=== PATIENT | female | born 1935 | race Caucasian/White ===

== ENCOUNTER 2017-07-18 16:51 | Inpatient (IN) | payer OTHER, MEDICARE ==
[~2017-07-18] VITALS: Ht 165.1 cm; Wt 68.3 kg
--- NOTE | ~2017-07-18 | 2DMMODE ---
[facility] [address] [place] [address] 2 D/M-MODE ECHOCARDIOGRAM Name: ROSARIOWESTLEY Room #: 202-P ADM IN M.R.#: [id number] Admission: 07/18/17 Attend Phys: Hank Urrutia MD Discharge: Date of : 33 Date of Service: 07/21/17 [facility] Report #: [id number] THIS REPORT FOR: //name// APPROVED REPORT Study performed: 07/21/2017 13:38:25 EXAM: Comprehensive 2D, Doppler, and color-flow Echocardiogram Patient Location: Bedside Room #: 202 BSA: 1.74 Other Information Study Quality: Fair Indications COPD Pulmonary Hypertension Dyspnea 2D Dimensions RVDd: 34.28 mm LVEF(%): 58.86 (>50%) IVSd: 11.05 (7-11mm) LVOT Diam: 21.83 (18-24mm) LVDd: 43.50 mm PWd: 11.42 (7-11mm) Ascending Ao: 35.95 (22-36mm) LVDs: 30.04 (25-40mm) Aortic Root: 34.80 mm IVC: 22.00 mm Abad's LVEF: 58.86 % Volumes Left Atrial Volume (Systole) Single Plane 4CH: 54.53 mL Single Plane 2CH: 59.83 mL LA ESV Index: 36.00 mL/m2 Aortic Valve AoV Peak Dieter.: 1.57 m/s AO Peak Gr.: 9.86 mmHg LVOT Max P.02 mmHg LVOT Max V: 1.00 m/s BRYSON Vmax: 2.39 cm2 Mitral Valve E/A Ratio: 1.1 MV Decel. Time: 140.32 ms [facility] [address] [place] [address] 2 D/M-MODE ECHOCARDIOGRAM Name: WESTLEY PONCE Room #: 202-P [facility] IN .R.#: [id number] Admission: 07/18/17 Attend Phys: Hank Urrutia MD Discharge: Date of : 34 Date of Service: 07/21/17 1600 Report #: [id number] E Max Dieter.: 1.23 m/s MV A Dieter.: 1.15 m/s MV PHT: 40.69 ms IVRT: 69.20 ms Pulmonary Valve PV Peak Dieter.: 1.03 m/s PV Peak Gr.: 4.25 mmHg DE End Vmax: 1.56 m/s Pulmonary Vein P Vein S: 0.43 m/s P Vein A: 0.25 m/s P Vein D: 0.31 m/s P Vein A Dur.: 101.5 msec P Vein S/D Ratio: 1.39 Tricuspid Valve TR Peak Dieter.: 3.52 m/s TR Peak Gr.: 49.42 mmHg PA Pressure: 59.00 mmHg Left Ventricle The left ventricle is normal size. Regional wall motion is not well visualized but grossly normal. There is normal left ventricular wall thickness. The left ventricular systolic function is normal. The left ventricular ejection fraction is within the normal range. LVEF 65%. Grade II - pseudonormal filling dynamics. Right Ventricle The right ventricle is normal size. The right ventricular systolic function is normal. Atria Left atrium is dilated. Right atrium is dilated. Aortic Valve Aortic valve is calcified, trileaflet Trace aortic regurgitation. There is no aortic valvular stenosis. Mitral Valve The mitral valve is normal in structure. Mild mitral regurgitation. No evidence of mitral valve stenosis. Tricuspid Valve The tricuspid valve is normal in structure. There is mild tricuspid regurgitation. Estimated PAP 60 mmHg. There is moderate pulmonary hypertension. [facility] [address] [place] [address] 2 D/M-MODE ECHOCARDIOGRAM Name: WESTLEY PONCE Room #: 202-P [facility] IN ..#: [id number] Admission: 07/18/17 Attend Phys: Hank Urrutia MD Discharge: Date of : 34 Date of Service: 07/21/17 1600 Report #: [id number] Pulmonic Valve The pulmonary valve is normal in structure. Mild pulmonic regurgitation. Great Vessels The aortic root is normal in size. IVC is dilated and collapses >50% with inspiration. Pericardium There is no pericardial effusion. <Conclusion> Technically limited study The left ventricular systolic function is normal. LVEF 65%. Grade II - pseudonormal filling dynamics. Aortic valve is calcified, trileaflet. No aortic valvular stenosis or insufficiency. The mitral valve is normal in structure. Mild mitral regurgitation. Pulmonary artery pressure of 60mmHg There is no pericardial effusion. <ELECTRONICALLY SIGNED> By: Saman Magallon MD, FACC 07/21/171599 99 99 Saman Magallon MD, FACC /INF
--- NOTE | ~2017-07-18 | HC ---
[facility] [place] [address] CONSULTATION Name: WESTLEY PONCE Room #: 202-P ADM IN M.R.#: [id number] Admission: 07/18/17 Attend Phys: Hank Urrutia MD Discharge: Date of : 34 Report #: [id number] THIS REPORT FOR: //name// CC: Hank Edwards DATE OF SERVICE: 07/21/2017 PERSONAL PHYSICIAN: None on staff. CHIEF COMPLAINT: Lower extremity edema with chronic right lower extremity ulcerations. HISTORY OF PRESENT ILLNESS: This is an 81-year-old white female with history of COPD, venous insufficiency and chronic lower extremity ulcerations and edema, who presented to the hospital for increasing shortness of breath, cough and weight again. The patient was found to have acute exacerbation of COPD and was admitted to the hospital. I was asked to see the patient given her mild edema as well as the chronic ulceration in her right lower extremity. The patient has been followed by myself in the past for this very same concern. PAST MEDICAL HISTORY: Chronic lower extremity edema with open ulcerations, history of previous right hip fracture, hyperlipidemia, COPD, previous sigmoid diverticulitis with subsequent fistula, history of exploratory laparotomy with colectomy and colostomy placement. CURRENT MEDICATIONS: Multiple, I reviewed the patient's medication list. DRUG ALLERGIES: SULFA, COUMADIN and LEVAQUIN. SOCIAL HISTORY: The patient has a remote history of smoking. Does not drink alcohol. FAMILY HISTORY: Not pertinent to current medical condition. REVIEW OF SYSTEMS: CONSTITUTIONAL: The patient denies fevers or chills. NEUROLOGIC: The patient has overall generalized weakness, but no isolated weakness in arms or legs. EYES: No complaints. ENT: No complaints. CARDIAC: The patient has chronic lower extremity edema, which is mild, but no chest pain or palpitation. RESPIRATORY: The patient has shortness of breath, cough and associated wheezes consistent with COPD. The patient denies having any orthopnea. GASTROINTESTINAL: The patient denies nausea, vomiting, abdominal pain. [facility] [address] [place] [address] CONSULTATION Name: WESTLEY PONCE Room #: 202-P [facility] IN ..#: [id number] Admission: 07/18/17 Attend Phys: Hank Urrutia MD Discharge: Date of : 34 Report #: [id number] GENITOURINARY: The patient denies urgency or frequency. MUSCULOSKELETAL: No complaints. SKIN: There is chronic stasis dermatitis with multiple superficial chronic ulceration in the right lower extremity. PHYSICAL EXAMINATION: VITAL SIGNS: Temperature 36.4, pulse measuring 18, BP 134/69. GENERAL: This is an alert and oriented x 3, pleasant white female who is in no acute distress, sitting up at bedside tear. HEENT: Normocephalic, atraumatic. Mucous membranes are moist. Pupils are round. Sclerae white. NECK: Supple, without JVD. BACK: Nontender. LUNGS: Diminished breath sounds heard throughout. Occasional scattered wheeze. CHEST: Nontender. HEART: Regular, with 2/6 systolic ejection murmur. ABDOMEN: Soft, nontender. EXTREMITIES: The patient moves all extremities without difficulty. Evaluation of right lower extremity reveals 1+ edema with multiple superficial venous ulcerations and significant stasis dermatitis. There are no signs of actual erythema, warmth or cellulitis. Distal pulses are 1+ dorsalis pedis and posterior tibial. Bilateral heels are intact. Evaluation of left lower extremity shows no signs of any open ulcerations, but does have trace to 1+ edema. NEUROLOGIC: Cranial nerves 2-12 grossly intact. Motor and sensory grossly intact. LABORATORY DATA: White count 18.3, hemoglobin 10.8. Albumin is 3.8. BNP was 308. IMPRESSION: 1. Multiple superficial ulcerations in right lower extremity without signs of cellulitis. 2. Chronic venous insufficiency, right lower extremity with mild edema. 3. Acute exacerbation of chronic obstructive pulmonary disease. 4. Generalized debility. PLAN: At this time, we will place, morphine, Silvadene cream overall the right lower extremity open ulcerations, cover this with Xeroform, ABD, and have the patient wrap her leg from the toes to knee with Kerlix and Didier wrap. We will ____ make sure the patient is eating high protein diet to aid in healing of these ulcerations. We will also make sure we [place] [address] CONSULTATION Name: WESTLEY PONCE Room #: 202-P ADM IN M.R.#: [id number] Admission: 07/18/17 Attend Phys: Hank Urrutia MD Discharge: Date of : 34 Report #: [id number] therapy for strengthening. Continue her pulmonary treatments per Pulmonary Service. We will continue to follow the patient. By: 1334 1850 Michoacano Lockwood MD /nt
--- NOTE | ~2017-07-18 | EKG ---
[address] [place] [address] ELECTROCARDIOGRAM REPORT Name: WESTLEY PONCE Room #: 202-P ADM IN M.R.#: [id number] Admission: 07/18/17 Attend Phys: Hank Urrutia MD Discharge: Date of : 34 Report #: [id number] THIS REPORT FOR: //name// [facility] ED Test Date: 2017-07-18 Test Time: 17:21:16 Pat Name: WESTLEY PONCE Department: Room: 202 Gender: F Consumer Affairs Specialist: J Luis EDWARDS : 1935 Requested By: Claribel Urban Order Number: [id number] MD: Tommie Keane Measurements Intervals [place] Rate: 85 P: 34 PA: 238 QRS: 21 QRSD: 107 T: 29 QT: 378 QTc: 450 Interpretive Statements Sinus rhythm Prolonged PA interval Abnormal R-wave progression, early transition Baseline wander in lead(s) V3,V5 Compared to ECG 04/25/2016 09:53:40 First degree AV block now present Atrial premature complex(es) no longer present Right ventricular hypertrophy no longer present Electronically Signed On 07-19-2017 23:34:36 SALES ORDER COORDINATOR by Tommie Keane [email or web address] <ELECTRONICALLY SIGNED> By: Tommie Keane MD 07/19/17 2334 [id number] Tommie Keane MD /EPI
--- NOTE | ~2017-07-18 | HC ---
[facility] [place] [address] CONSULTATION Name: WESTLEY PONCE Room #: 202-P ADM IN M.R.#: [id number] Admission: 07/18/17 Attend Phys: Hank Urrutia MD Discharge: Date of : 34 Report #: [id number] THIS REPORT FOR: //name// CC: Hank Edwards PRIMARY CARE PHYSICIAN: Dorys Edwards D.O. REFERRING PHYSICIAN: Hank Urrutia M.D. REASON FOR REFERRAL: Dyspnea. HISTORY OF PRESENT ILLNESS: The patient is an 81-year-old white female presents to the Emergency Room with progressive dyspnea and cough. A pulmonary consultation was requested. The patient states that she started to have trouble with cough and dyspnea for the past year or so. She was last hospitalized in April 2016 for cough and bronchospasm. The patient has no known history of chronic lung disease. She was in her usual state of health and for the past few days, she started noticing increasing dyspnea, cough and bronchospasm. Otherwise, denies any fever, night sweats or chills or chest pain. Again, the patient has smoked remotely about 10 years, quit over 30 years ago. PAST MEDICAL HISTORY: Notable for past history of pneumonia, dating back to April 2016. Chest x-ray showing right lower lobe infiltrates, apparent history of COPD, osteoarthritis, hyperlipidemia, atrial fibrillation, history of chronic right lower extremity wound requiring skin grafting and hyperlipidemia. PAST SURGICAL HISTORY: Includes a sigmoid resection in the past. ALLERGIES: CODEINE, which causes GI upset; fluoroquinolone causes nausea or vomiting and SULFA, reactions not specified. HOME MEDICATIONS: Include Protonix, Centrum Silver, DuoNeb, Zocor, potassium supplements, hydroxyzine, Lasix and prednisone 5 mg once a day. FAMILY HISTORY: Noncontributory. SOCIAL HISTORY: Tobacco use as mentioned above. She denies any alcohol use. She is and lives with her . REVIEW OF SYSTEMS: As mentioned above, otherwise 10-point system review negative. [facility] [address] [place] [address] CONSULTATION Name: WESTLEY PONCE Room #: [address] [place] [address] IN M.R.#: [id number] Admission: 07/18/17 Attend Phys: Hank Urrutia MD Discharge: Date of : 34 Report #: [id number] PHYSICAL EXAMINATION: GENERAL: She is awake and alert, in no apparent distress. HEENT: Normocephalic and atraumatic. NECK: Supple, without any lymphadenopathy or thyromegaly. CHEST: Breath sounds are fair with mild coarse breath sounds bilaterally. No overt wheezes are heard. CARDIOVASCULAR: Normal S1 and S2. There are no murmurs or gallop. There is no JVD. There is no carotid bruit. Pulses are 2+/4+ bilaterally. ABDOMEN: Soft and nontender. No organomegaly or masses felt. GENITOURINARY: Deferred. RECTAL: Deferred. EXTREMITIES: There is no edema, cyanosis or clubbing. LABORATORY DATA: Chest x-ray shows mild bilateral linear atelectasis, otherwise no infiltrates or air bronchogram or pleural effusion seen. Influenza A and B swab is negative. Electrolytes are normal. WBC 19,900; hemoglobin is 10.8; platelets are normal and no evidence of bandemia. IMPRESSION: 1. Progressive dyspnea, cough and bronchospasm and is an 81-year-old white female. She has smoked for about 10 years but quit over 30 years ago. She is felt to have chronic obstructive pulmonary disease. Exacerbation of chronic obstructive pulmonary disease is felt to be likely along with possible lower respiratory tract infection. 2. Chronic obstructive pulmonary disease. No prior PFTs in the past. We would recommend baseline pulmonary functions once stable as an outpatient. The patient does not have a transplanter orchid that she follows regularly. 3. Gastroesophageal reflux disease, with recurrent respiratory symptoms, one may need to be aware whether she is developing subclinical aspiration. 4. Chronic leg ulcers. RECOMMENDATIONS: Agree with current treatment including broad-spectrum antibiotics, corticosteroids and bronchodilators. The patient will benefit from pulmonary function test as an outpatient with close followup. DVT and GI prophylaxis will be addressed. Thank you for this consultation. <ELECTRONICALLY SIGNED> By: Dylan Baron MD 07/21/17 1301 1553 1949 Dylan Baron MD /nt
[~2017-07-18 16:51] MED LIST: ACCUNEB SO1.25 MG/1 INH; ALBUTEROL2.5 MG/0.5 INH; AUGMENTIN 875875 MG PO; AZITHROMYCIN PO; BREO ELLIPTA 21 EACH IH; Benzonatate PO; CARDIZEM60 MG PO; CEFTIN 250 MG250 MG PO; CENTRUM SILVER1 EAC4 PO; CEPHALEXIN 500500 M1 PO; CLEOCIN HCL150 MG PO; COLACE100 MG PO; COMBIVENT INH; DIFLUCAN200 MG PO; DOXYCYCLINE 10100 M1 PO; DULCOLAX5 MG PO; DUONEB 2.5-0.5 M3 ML INH; ENOXAPARIN40 MG/0.1 SUBQ; FUROSEMIDE 40 M40 M1 PO; GUAIFENESIN/COD10 M1 PO; HYDROCODONE-APA1 TA1 PO; LASIX 20 MG TAB20 MG PO; LIPITOR 20 MG T20 M1 PO; MILK OF MA2400 MG/10 PO; MIRALAX17 G1 PO; MIRALAX17 GM PO; MUCINEX DM TABL1 TA1 PO; MUCINEX TA600 MG/TA1 PO; MULTIVITAMINS PO; NORCO 5-325 TA1 EACH PO; PACERONE 200 M200 M1 PO; PEPCID20 MG PO; POTASSIUM20 PO; PREDNISOLONE 5 M5 M1; PREDNISONE 10 M10 MG; PREDNISONE 10 M10 MG PO; PREDNISONE 5 MG5 M1 PO; PROTONIX40 M1 PO; PULMICORT FLEX90 MCG IH; SIMVASTATIN40 MG PO; TRIAMCINOLONE A80 G2 TOP; TYLENOL325 MG PO; XARELTO10 MG PO; XOPENEX 0.63 MG/3 M1 INH; ZOCOR40 MG PO
[2017-07-18 16:52] VITALS: BP 119/60
[2017-07-18 17:38] LABS: ABSOLUTE NEUTROPHILS 8.5 thou/uL (1.4-8.2); BASOPHILS 0.6 % (0.0-2.0); EOSINOPHILS 3.9 % (0.0-3.0); HEMATOCRIT 35.6 % (37.0-47.0); HEMOGLOBIN 11.7 gm/dL (12.0-15.0); LYMPHOCYTES 17.2 % (24.0-44.0); MANUAL DIFF NO; MCHC 32.8 g/dL (28.0-37.0); MCV 85.5 fL (80.0-100.0); MONOCYTES 9.3 % (1.0-8.0); PLATELET COUNT 317 thou/uL (150-400); RBC 4.17 mil/uL (4.20-5.00); RDW 13.9 % (10.5-14.5); WBC 12.3 thou/uL (4.0-11.0)
[2017-07-18 17:46] LABS: ANION GAP 4 mmol/L (7-16); BUN 16 mg/dL (7-18); CALCIUM 9.3 mg/dL (8.5-10.1); CHLORIDE 104 mmol/L (98-107); CO2 30 mmol/L (21-32); CREATININE 0.8 mg/dL (0.6-1.0); GLUCOSE 96 mg/dL (74-106); POTASSIUM 4.3 mmol/L (3.5-5.1); SODIUM 138 mmol/L (136-145)
[2017-07-18 17:55] LABS: ALBUMIN 3.8 g/dL (3.4-5.0); ALKALINE PHOSPHATASE 105 U/L (46-116); SGOT 19 U/L (15-37); SGPT 19 U/L (30-65); TOTAL BILIRUBIN 0.5 mg/dL (<0.1-1.0); TOTAL PROTEIN 7.5 g/dL (6.4-8.2); TROPONIN-I < 0.04 ng/mL (<0.06)
[2017-07-18] MEDS ORDERED: SIMVASTATIN40 MG PO (18:09)
[2017-07-18] MEDS ORDERED: HYDROXYZINE HCL25 M1 PO (18:10)
[2017-07-18 18:39] VITALS: BP 119/60
[2017-07-18 20:00] VITALS: BP 146/75
[2017-07-19] VITALS (7 sets, daily range): BP systolic 110–146; BP diastolic 48–88
[2017-07-19 03:21] LABS: HEMATOCRIT 33.8 % (37.0-47.0); HEMOGLOBIN 11.1 gm/dL (12.0-15.0); MCH 28.2 pg (26.0-34.0); MCV 85.5 fL (80.0-100.0); RBC 3.96 mil/uL (4.20-5.00); RDW 14.2 % (10.5-14.5); WBC 14.8 thou/uL (4.0-11.0)
[2017-07-19 03:46] LABS: CALCIUM 9.2 mg/dL (8.5-10.1); POTASSIUM 3.9 mmol/L (3.5-5.1)
[2017-07-19 08:27] LABS: URINE BILIRUBIN NEGATIVE (Negative); URINE BLOOD NEGATIVE (Negative); URINE COLOR YELLOW; URINE GLUCOSE-RANDOM* NEGATIVE (Negative); URINE KETONES NEGATIVE (Negative); URINE NITRITE NEGATIVE (Negative); URINE PROTEIN (DIPSTICK) NEGATIVE (Negative); URINE SPECIFIC GRAVITY 1.015 (1.005-1.035); URINE UROBILINOGEN 0.2 E.U./dl (0.2-1.0)
[2017-07-20 03:42] LABS: HEMATOCRIT 32.8 % (37.0-47.0); HEMOGLOBIN 10.8 gm/dL (12.0-15.0); MCH 28.1 pg (26.0-34.0); MCHC 32.9 g/dL (28.0-37.0); MCV 85.6 fL (80.0-100.0); PLATELET COUNT 327 thou/uL (150-400); RBC 3.84 mil/uL (4.20-5.00); RDW 14.2 % (10.5-14.5); WBC 19.8 thou/uL (4.0-11.0)
[2017-07-20 03:46] LABS: MANUAL DIFF YES
[2017-07-20 03:51] LABS: CALCIUM 9.4 mg/dL (8.5-10.1); CREATININE 0.7 mg/dL (0.6-1.0); POTASSIUM 4.2 mmol/L (3.5-5.1)
[2017-07-20 04:07] VITALS: BP 133/66
[2017-07-20 05:31] LABS: TOTAL CELL COUNT 100
[2017-07-20 08:00] VITALS: BP 121/64
[2017-07-20 12:00] VITALS: BP 152/76
[2017-07-20 14:36] VITALS: BP 152/76
[2017-07-20 15:40] VITALS: BP 121/65
[2017-07-20 19:59] VITALS: BP 132/66
[2017-07-21 03:13] VITALS: BP 127/59
[2017-07-21 06:07] LABS: HEMATOCRIT 32.7 % (37.0-47.0); HEMOGLOBIN 10.8 gm/dL (12.0-15.0); MCH 28.2 pg (26.0-34.0); MCHC 33.1 g/dL (28.0-37.0); MCV 85.1 fL (80.0-100.0); RBC 3.84 mil/uL (4.20-5.00); WBC 18.3 thou/uL (4.0-11.0)
[2017-07-21 06:13] LABS: CALCIUM 9.1 mg/dL (8.5-10.1); CREATININE 0.7 mg/dL (0.6-1.0); POTASSIUM 4.3 mmol/L (3.5-5.1)
[2017-07-21 07:04] VITALS: BP 136/80
[2017-07-21 11:10] VITALS: BP 134/69
[2017-07-21 13:31] LABS: HEMATOCRIT 36.2 % (37.0-47.0); HEMOGLOBIN 11.9 gm/dL (12.0-15.0); MCH 28.1 pg (26.0-34.0); MCHC 32.9 g/dL (28.0-37.0); MCV 85.4 fL (80.0-100.0); PLATELET COUNT 394 thou/uL (150-400); RBC 4.24 mil/uL (4.20-5.00); RDW 14.5 % (10.5-14.5); WBC 19.3 thou/uL (4.0-11.0)
[2017-07-21 13:33] LABS: MANUAL DIFF YES
[2017-07-21 14:33] LABS: ABSOLUTE NEUTROPHILS 14.3 thou/uL (1.4-8.2); PLATELET ESTIMATE NORMAL; TOTAL CELL COUNT 100
[2017-07-21 15:13] LABS: ABG SAMPLE TYPE ARTERIAL; BE(vivo) 3.8 mmol/L (-2 to +3); FIO2 21 %; HCO3 27.5 mmol/L (22.0-26.0); O2(CT) 16.2 mL/dL (15.0-23.0); O2Hb 93.4 % (92.0-98.0); PCO2 38.1 mmHg (35.0-45.0); PO2 64.3 mmHg (80.0-100.0); STICK SITE R.RADIAL; pH 7.476 (7.360-7.450); sO2 93.9 % (92.0-98.0); tCO2 28.7 mmol/L (24.0-30.0)
[2017-07-21 19:27] VITALS: BP 120/60
[2017-07-22 03:15] LABS: HEMATOCRIT 35.3 % (37.0-47.0); HEMOGLOBIN 11.4 gm/dL (12.0-15.0); MCH 27.7 pg (26.0-34.0); MCHC 32.4 g/dL (28.0-37.0); MCV 85.4 fL (80.0-100.0); PLATELET COUNT 461 thou/uL (150-400); RBC 4.14 mil/uL (4.20-5.00); WBC 15.9 thou/uL (4.0-11.0)
[2017-07-22 03:21] LABS: MANUAL DIFF YES
[2017-07-22 03:32] LABS: ALBUMIN 3.5 g/dL (3.4-5.0); CALCIUM 9.4 mg/dL (8.5-10.1); CREATININE 0.9 mg/dL (0.6-1.0); MAGNESIUM 1.9 mg/dL (1.8-2.4); POTASSIUM 4.6 mmol/L (3.5-5.1); TOTAL BILIRUBIN 0.4 mg/dL (<0.1-1.0); TOTAL PROTEIN 7.1 g/dL (6.4-8.2)
[2017-07-22 03:58] LABS: TSH 2.09 uIU/mL (0.358-3.740)
[2017-07-22 05:04] VITALS: BP 108/63
[2017-07-22 05:10] LABS: ABSOLUTE NEUTROPHILS 13.4 thou/uL (1.4-8.2); LARGE PLATELETS OCCASIONAL; MYELOCYTES 1 %; TOTAL CELL COUNT 100
[2017-07-22 05:25] VITALS: BP 113/67
[2017-07-22 07:48] VITALS: BP 91/53
[2017-07-22 15:00] VITALS: BP 98/54
[2017-07-22 19:25] VITALS: BP 106/47
[2017-07-23 03:42] VITALS: BP 115/64
[2017-07-23 03:48] LABS: CALCIUM 8.4 mg/dL (8.5-10.1); CREATININE 0.8 mg/dL (0.6-1.0); POTASSIUM 4.1 mmol/L (3.5-5.1)
[2017-07-23 07:15] VITALS: BP 105/48
[2017-07-23 11:30] VITALS: BP 114/55
[2017-07-23 13:48] VITALS: BP 114/55
[2017-07-23] MEDS ORDERED: PROBIOTIC1 EAC1 PO (15:26)
[2017-07-23] MEDS ORDERED: VITAMIN D2000 UNIT PO (15:26)
[2017-07-23] MEDS ORDERED: PREDNISONE 10 M10 M1 PO (15:26)
[2017-07-23] MEDS ORDERED: CEFDINIR300 MG PO (15:26)
[2017-07-23] MEDS ORDERED: LASIX 40 MG TAB40 M2 PO (15:26)
[2017-07-23] MEDS ORDERED: COLACE100 MG PO (15:26)
[2017-07-23] MEDS ORDERED: SSD CREAM 1% 5050 GM TOP (15:26)
[2017-07-23 16:09] VITALS: BP 114/55
== END 2017-07-23 18:32 | disposition home health service (06) | DRG 291 ==
LOC: ER 16:51 → EROBS 18:20 → 2N 18:20 → ENTRNSPT 07-23 16:39 → 2N 07-23 18:32
PROVIDERS: Hospitalist; Internal Medicine Endocrinology, Diabetes & Metabolism; Internal Medicine Pulmonary Disease; Nurse Practitioner Family; Registered Nurse
DX: I50.31 Acute diastolic (congestive) heart failure (principal); J18.9 Pneumonia, unspecified organism; J44.0 Chronic obstructive pulmonary disease with (acute) lower respiratory infection; L97.919 Non-pressure chronic ulcer of unspecified part of right lower leg with unspecified severity; J44.1 Chronic obstructive pulmonary disease with (acute) exacerbation; F41.9 Anxiety disorder, unspecified; E78.5 Hyperlipidemia, unspecified; I27.20 Pulmonary hypertension, unspecified; E55.9 Vitamin D deficiency, unspecified; M62.84 Sarcopenia; F32.9 Major depressive disorder, single episode, unspecified; K21.9 Gastro-esophageal reflux disease without esophagitis; Z93.3 Colostomy status; Z85.828 Personal history of other malignant neoplasm of skin; Z88.5 Allergy status to narcotic agent; Z88.1 Allergy status to other antibiotic agents; Z90.49 Acquired absence of other specified parts of digestive tract; Z87.81 Personal history of (healed) traumatic fracture; Z87.891 Personal history of nicotine dependence; Z88.2 Allergy status to sulfonamides; Z79.899 Other long term (current) drug therapy
CPT/HCPCS: 10194

== ENCOUNTER → 2017-09-17 | Outpatient (CLI) | payer OTHER, MEDICARE ==
[~2017-09-17] MED LIST changes: +ALEVE220 M1 PO; +CEFDINIR300 MG PO; +DOXYCYCLINE 10100 MG PO; +HYDROXYZINE HCL25 M1 PO; +LASIX 40 MG TAB40 M2 PO; +PREDNISONE 10 M10 M1 PO; +PREDNISONE 20 M20 MG PO; +PROBIOTIC1 EAC1 PO; +ROBITUSSIN100 MG/53 PO; +SSD CREAM 1% 5050 GM TOP; +VITAMIN D2000 UNIT PO
== END ==
LOC: RAD 09:28
DX: J18.9 Pneumonia, unspecified organism (principal); R91.8 Other nonspecific abnormal finding of lung field; J44.9 Chronic obstructive pulmonary disease, unspecified; E78.00 Pure hypercholesterolemia, unspecified; I10 Essential (primary) hypertension

== ENCOUNTER 2017-11-15 10:17 | Inpatient (IN) | payer OTHER, MEDICARE ==
[~2017-11-15] VITALS: Ht 157.5 cm; Wt 63.5 kg
--- NOTE | ~2017-11-15 | HC ---
[facility] [place] [address] CONSULTATION Name: WESTLEY PONCE Room #: 461-P [facility] IN M.R.#: [id number] Admission: 11/15/17 Attend Phys: Hank Urrutia MD Discharge: 11/18/17 Date of : 34 Report #: [id number] THIS REPORT FOR: //name// CC: Hank Edwards DATE OF SERVICE: 11/15/2017 REASON FOR CONSULTATION: Exacerbation of COPD. IMPRESSION: 1. Exacerbation of chronic obstructive pulmonary disease. 2. Lower respiratory tract infection. 3. Gastroesophageal reflux disease. 4. Debilitation. PLAN: I agree with antibiotics, corticosteroids, bronchodilators, PT and OT to see. Dr. Baron will resume treatment in the morning. DVT and ulcer prophylaxis. HISTORY OF PRESENT ILLNESS: A very pleasant 81-year-old female, known to our service, comes in with cough, progressive shortness of breath x a week; however, has had chills last night. No definite chest pain or palpitation. No increasing peripheral edema. No nausea or vomiting. She is not on home oxygen. No one in the home is currently sick, though son was ill in the recent past. There is a question of mold in the house. ALLERGIES: CODEINE, LEVAQUIN AND SULFA. PAST SURGICAL HISTORY: Surgeries include sigmoid resection, atrial septal defect repair when she was 22, cholecystectomy, skin graft to right leg, right leg vein stripping, right forearm skin cancer removal, hernia surgery, exploratory laparotomy with colectomy and colostomy in 2016 and repair of incarcerated incisional and parastomal hernia with complex abdominal wall reconstruction. FAMILY HISTORY: Noncontributory. SOCIAL HISTORY: Negative ETOH. , lives with . Positive tobacco, quit 30 years ago. PHYSICAL EXAMINATION: VITAL SIGNS: Temperature 97.6, pulse 81, respiratory rate 20 and BP 136/66. LUNGS: Showed mild wheeze bilaterally. HEART: Regular. ABDOMEN: Bowel sounds present. EXTREMITIES: Showed no calf tenderness. [facility] [address] [place] [address] CONSULTATION Name: WESTLEY PONCE Room #: [address] [place] [address] IN ..#: [id number] Admission: 11/15/17 Attend Phys: Hank Urrutia MD Discharge: 11/18/17 Date of : 34 Report #: [id number] NEUROLOGIC: Alert, oriented. Family was present. LABORATORY DATA: Chest x-ray shows no acute change. White count 8.6, hemoglobin 12.4 and platelets 344,000. No bands. BUN 18, creatinine 1. ProBNP 274. <ELECTRONICALLY SIGNED> By: Dariana Ayala MD 11/18/17 2316 1541 0008 Dariana Ayala MD /nt
--- NOTE | ~2017-11-15 | EKG ---
[address] [place] [address] ELECTROCARDIOGRAM REPORT Name: WESTLEY PONCE Room #: 461-P ADM IN M.R.#: [id number] Admission: 11/15/17 Attend Phys: Hank Urrutia MD Discharge: Date of : 34 Report #: [id number] THIS REPORT FOR: //name// [facility] ED Test Date: 2017-11-15 Test Time: 10:38:09 Pat Name: WESTLEY PONCE Department: Room: 461 Gender: F Director Of Exhibit Development: J Luis EDWARDS : 1935 Requested By: Sandra Palmer Order Number: [id number] MD: Tommie Keane Measurements Intervals [place] Rate: 80 P: 15 [place]: 232 QRS: 2 QRSD: 105 T: 10 QT: 381 QTc: 440 Interpretive Statements Sinus rhythm Prolonged [place] interval Low voltage, precordial leads Probable left ventricular hypertrophy Compared to ECG 07/18/2017 17:21:16 Electronically Signed On 11-15-2017 19:55:58 CDT by Tommie Keane [email or web address] <ELECTRONICALLY SIGNED> By: Tommie Keane MD 11/15/17 1955 1038 1038 Tommie Keane MD /EPI
[~2017-11-15 10:17] MED LIST changes: -ALEVE220 M1 PO; -DOXYCYCLINE 10100 MG PO; -PREDNISONE 20 M20 MG PO; -ROBITUSSIN100 MG/53 PO
[2017-11-15 10:24] VITALS: BP 139/51
[2017-11-15 11:34] LABS: ABSOLUTE NEUTROPHILS 5.7 thou/uL (1.4-8.2); BASOPHILS 0.7 % (0.0-2.0); EOSINOPHILS 6.4 % (0.0-3.0); HEMATOCRIT 38.4 % (37.0-47.0); HEMOGLOBIN 12.4 gm/dL (12.0-15.0); LYMPHOCYTES 18.7 % (24.0-44.0); MCHC 32.4 g/dL (28.0-37.0); MCV 83.4 fL (80.0-100.0); MONOCYTES 7.9 % (1.0-8.0); PLATELET COUNT 344 thou/uL (150-400); POLYS 66.3 % (36.0-66.0); RBC 4.61 mil/uL (4.20-5.00); RDW 15.5 % (10.5-14.5); WBC 8.6 thou/uL (4.0-11.0)
[2017-11-15 11:40] LABS: CALCIUM 9.6 mg/dL (8.5-10.1); POTASSIUM 3.9 mmol/L (3.5-5.1)
[2017-11-15 12:03] VITALS: BP 139/51
[2017-11-15] MEDS ORDERED: ALEVE220 M1 PO (12:09)
[2017-11-15] MEDS ORDERED: SIMVASTATIN40 MG PO (12:10)
[2017-11-15] MEDS ORDERED: HYDROXYZINE HCL25 M1 PO (12:10)
[2017-11-15 12:56] VITALS: BP 135/64
[2017-11-15 13:00] VITALS: BP 136/66
[2017-11-15 16:00] VITALS: BP 122/54
[2017-11-15 20:22] VITALS: BP 111/45
[2017-11-16 05:10] VITALS: BP 156/85
[2017-11-16 06:53] LABS: HEMATOCRIT 37.3 % (37.0-47.0); HEMOGLOBIN 12.1 gm/dL (12.0-15.0); MCH 26.7 pg (26.0-34.0); MCHC 32.4 g/dL (28.0-37.0); MCV 82.4 fL (80.0-100.0); RBC 4.52 mil/uL (4.20-5.00); WBC 11.4 thou/uL (4.0-11.0)
[2017-11-16 07:01] LABS: CALCIUM 9.9 mg/dL (8.5-10.1); CREATININE 0.8 mg/dL (0.6-1.0); POTASSIUM 4.2 mmol/L (3.5-5.1)
[2017-11-16 07:58] VITALS: BP 146/67
[2017-11-16 15:40] VITALS: BP 123/44
[2017-11-16 17:26] VITALS: BP 123/44
[2017-11-17 04:36] VITALS: BP 132/66
[2017-11-17 07:28] VITALS: BP 169/82
[2017-11-17 16:37] VITALS: BP 134/68
[2017-11-17 19:55] VITALS: BP 130/55
[2017-11-18 03:23] VITALS: BP 156/66
[2017-11-18 07:56] VITALS: BP 177/77
[2017-11-18] MEDS ORDERED: ROBITUSSIN100 MG/53 PO (09:13)
[2017-11-18] MEDS ORDERED: PREDNISONE 20 M20 MG PO (09:13)
[2017-11-18] MEDS ORDERED: ACCUNEB SO1.25 MG/1 INH (09:13)
[2017-11-18] MEDS ORDERED: DOXYCYCLINE 10100 MG PO (09:13)
[2017-11-18 13:55] VITALS: BP 123/44
[2017-11-18 16:07] VITALS: BP 138/68
== END 2017-11-18 16:40 | disposition home health service (06) | DRG 189 ==
LOC: ER 10:17 → 4W 11:53 → EROBS 11:53 → 4W 12:43 → ENTRNSPT 11-18 16:20 → 4W 11-18 16:40
PROVIDERS: Emergency Medicine; Hospitalist
DX: J96.00 Acute respiratory failure, unspecified whether with hypoxia or hypercapnia (principal); J44.1 Chronic obstructive pulmonary disease with (acute) exacerbation; E78.5 Hyperlipidemia, unspecified; M13.88 Other specified arthritis, other site; F41.9 Anxiety disorder, unspecified; F32.9 Major depressive disorder, single episode, unspecified; K21.9 Gastro-esophageal reflux disease without esophagitis; J22 Unspecified acute lower respiratory infection; M62.84 Sarcopenia; G31.84 Mild cognitive impairment of uncertain or unknown etiology; J84.10 Pulmonary fibrosis, unspecified; Z90.49 Acquired absence of other specified parts of digestive tract; Z87.891 Personal history of nicotine dependence; Z93.3 Colostomy status; Z79.899 Other long term (current) drug therapy; Z88.6 Allergy status to analgesic agent; Z88.1 Allergy status to other antibiotic agents; Z88.2 Allergy status to sulfonamides; Z85.828 Personal history of other malignant neoplasm of skin
CPT/HCPCS: 10045

== ENCOUNTER → 2017-11-23 | Outpatient (CLI) | payer OTHER, MEDICARE ==
[~2017-11-23] VITALS: Ht 157.5 cm; Wt 63.8 kg
[~2017-11-23] MED LIST changes: +ALEVE220 M1 PO; +DOXYCYCLINE 10100 MG PO; +PREDNISONE 20 M20 MG PO; +ROBITUSSIN100 MG/53 PO
[2017-11-23 13:59] VITALS: BP 140/68
[2017-11-23 15:10] LABS: ALBUMIN 3.9 g/dL (3.4-5.0); CALCIUM 9.7 mg/dL (8.5-10.1); MAGNESIUM 1.7 mg/dL (1.8-2.4); POTASSIUM 4.5 mmol/L (3.5-5.1); TOTAL BILIRUBIN 0.4 mg/dL (<0.1-1.0); TOTAL PROTEIN 7.3 g/dL (6.4-8.2)
== END ==
LOC: SEN 13:13
PROVIDERS: Registered Nurse
DX: J44.1 Chronic obstructive pulmonary disease with (acute) exacerbation (principal); K21.9 Gastro-esophageal reflux disease without esophagitis

== ENCOUNTER → 2018-01-26 | Outpatient (CLI) | payer OTHER, MEDICARE | LOC: RAD 10:54 | DX: J98.11 Atelectasis (principal); J98.4 Other disorders of lung; R91.8 Other nonspecific abnormal finding of lung field ==

== ENCOUNTER → 2018-06-01 | Outpatient (CLI) | payer OTHER, MEDICARE | LOC: RAD 08:22 | DX: J44.9 Chronic obstructive pulmonary disease, unspecified (principal); J84.9 Interstitial pulmonary disease, unspecified; J98.4 Other disorders of lung; I27.20 Pulmonary hypertension, unspecified; Z87.891 Personal history of nicotine dependence ==

== ENCOUNTER → 2018-06-07 | Outpatient (CLI) | payer OTHER, MEDICARE ==
[2018-06-07 10:06] LABS: CREATININE 0.7 mg/dL (0.6-1.0); POTASSIUM 4.6 mmol/L (3.5-5.1)
== END ==
LOC: ULTRA 09:01
PROVIDERS: Internal Medicine Pulmonary Disease
DX: J98.4 Other disorders of lung (principal); R06.00 Dyspnea, unspecified; I27.20 Pulmonary hypertension, unspecified; J44.9 Chronic obstructive pulmonary disease, unspecified; J84.9 Interstitial pulmonary disease, unspecified

== ENCOUNTER → 2019-01-19 | Outpatient (CLI) | payer OTHER, MEDICARE ==
--- NOTE | 2019-01-20 19:44 | PFR/MVV ---
[facility] [place] [address] PULMONARY FUNCTION MVV/REPORT Name: WESTLEY PONCE Room #: [facility]#: [id number] ������������������ Admission: 01/19/19 ������������������ Attend Phys: Dylan Baron MD Discharge: ������������������ Date of : 34 Report #: [id number] THIS REPORT FOR: //name// >> SPIROMETRY: (BTPS) Height: in cm Weight: lbs kg Exam Date: PRE-RX POST-RX PRED BEST %PRED BEST %PRED %CHG FVC LITERS . . . . . . FEV1 LITERS . . . . . . FEV1/FVC % . . . . . . UCF86-56% L/Sec . . . . . . PEF L/SEC . . . . . . FEF50/FIF50 UNITLESS . . . . . . MVV L/Min . . . f 1/Min . . . >> LUNG VOLUMES: (BTPS) PRE-RX POST-RX PRED AVG %PRED AVG %PRED %CHG VC Liters . . . . . . TLC Liters . . . . . . RV Liters . . . . . . RV/TLC % . . . . . . FRC PL Liters . . . . . . FRC N2 Liters . . . . . . ERV Liters . . . . . . IC Liters . . . . . . >> DIFFUSION: DLCO ml/Min/mmHg . . . . . . DL Nathanael ml/Min/mmHg . . . . . . DLCO/VA ml/Min/mmHg . . . . . . VA Liters . . . . . . COMMENTS: COMMENTS: >> RESISTANCE: [facility] [address] [place] [address] PULMONARY FUNCTION MVV/REPORT Name: WESTLEY PONCE [facility] [id number] ������������������ Admission: 01/19/19 ������������������ Attend Phys: Dylan Baron MD Discharge: ������������������ Date of : 34 Report #: [id number] PRE-RX PRED AVG %PRED Raw Total cmH20/L/Sec . . . Raw Insp cmH20/L/Sec . . . Raw Exp cmH20/L/Sec . . . Raw cmH20/L/Sec . . . Gaw L/Sec/cmH20 . . . sRaw cmH20 Sec . . . sGaw l/cmH20 Sec . . . Vtq Liters . . . # = OUTSIDE 95% CONFIDENCE INTERVAL CALIBRATION: PRED: 3.00 ACTUAL: EXP 3.01 INSP 3.02 [facility]-OL05-[address] [place] [address] N-1804-4 >> INTERPRETATION/IMPRESSION: CC: Dorys Flores DESCRIPTION OF PROCEDURE: Spirometry examination shows moderate airflow obstruction. Following bronchodilators, there was significant improvement. Lung volumes showed normal total lung capacity. Vital capacity is mildly reduced. Diffusion capacity is markedly reduced, but normal when corrected for alveolar volume. Flow volume loop is consistent with airflow obstruction. IMPRESSION: Moderate obstructive ventilatory defect with reversible airways. Diffusion capacity is reduced. Clinical correlation is recommended. ��������������������������������������������� <ELECTRONICALLY SIGNED> ���������������������������������������� By: Dylan Baron MD ��������������������������������������������� 01/20/19 1944 Dylan Baron MD /nt
== END ==
LOC: PUL 10:58
DX: I77.810 Thoracic aortic ectasia (principal); J47.9 Bronchiectasis, uncomplicated; J84.9 Interstitial pulmonary disease, unspecified; R60.9 Edema, unspecified; I27.20 Pulmonary hypertension, unspecified

== ENCOUNTER 2019-06-11 07:35 | Inpatient (IN) | payer OTHER, MEDICARE ==
[~2019-06-11] VITALS: Ht 152.4 cm; Wt 61.6 kg
[2019-06-11 07:39] VITALS: BP 176/82
[2019-06-11 08:04] LABS: BASOPHILS 0.5 % (0.0-2.0); EOSINOPHILS 2.9 % (0.0-3.0); HEMATOCRIT 37.5 % (37.0-47.0); HEMOGLOBIN 12.2 gm/dL (12.0-15.0); LYMPHOCYTES 10.1 % (24.0-44.0); MCH 29.7 pg (26.0-34.0); MCHC 32.4 g/dL (28.0-37.0); MCV 91.6 fL (80.0-100.0); PLATELET COUNT 399 thou/uL (150-400); POLYS 79.5 % (36.0-66.0); RDW 13.4 % (10.5-14.5)
[2019-06-11 08:16] LABS: ANION GAP 9 mmol/L (7-16); BUN 14 mg/dL (7-18); CALCIUM 9.9 mg/dL (8.5-10.1); CHLORIDE 100 mmol/L (98-107); CO2 28 mmol/L (21-32); CREATININE 0.7 mg/dL (0.6-1.0); GLUCOSE 95 mg/dL (74-106); SODIUM 137 mmol/L (136-145)
[2019-06-11 08:26] LABS: ALBUMIN 3.8 g/dL (3.4-5.0); SGOT 22 U/L (15-37); SGPT 18 U/L (30-65); TOTAL BILIRUBIN 0.5 mg/dL (<0.1-1.0); TROPONIN-I <0.06 ng/mL (<0.06)
[2019-06-11 09:30] VITALS: BP 112/45
[2019-06-11 10:13] VITALS: BP 125/60
[2019-06-11 10:30] VITALS: BP 146/56
--- NOTE | 2019-06-11 11:06 | EKG ---
[address] [address] ELECTROCARDIOGRAM REPORT Name: WESTLEY PONCE Room #: 463-P ADM IN M.R.#: [id number] Admission: 06/11/19 Attend Phys: Renee Meza Discharge: Date of : 34 Report #: [id number] THIS REPORT FOR: //name// [facility] ED Test Date: 2019-06-11 Test Time: 07:59:57 Pat Name: WESTLEY PONCE Department: Room: 463 Gender: F Hyperion Administrator: [place] : 1935 Requested By: Jose Givens Order Number: [id number] MD: Malik Villarreal Measurements Intervals [place] Rate: 91 P: 68 VT: 233 QRS: 19 QRSD: 103 T: 31 QT: 377 QTc: 464 Interpretive Statements Sinus rhythm Prolonged VT interval Compared to ECG 11/15/2017 10:38:09 No significant changes Electronically Signed On 06-11-2019 11:06:33 BINDING PRINTER by Malik Villarreal [email or web address] <ELECTRONICALLY SIGNED> By: Malik Villarreal MD 06/11/19 1106 0759 0759 Malik Villarreal MD /REY
--- NOTE | 2019-06-11 14:28 | NUR ---
Patient admitted to this unit from ER at approximately 1010. Patient has a diagnosis of Chronic Interstitial Lung Disease. She lives at home with spouse and son. Patient's vital signs are stable. She has been put on Accu-checks AC and HS with sliding scale Insulin. Blood sugar was 136 @ 1225; no Insulin required. IV is in left forearm and is Saline Locked. Patient has a loose, productive cough. Phlegm is yellow tinged. Respiratory Treatments have been ordered QID, prn. Dr Meza ordered her to be on O2 at 2 liters per nc as well. Patient has wounds on entire lower right extremity. Dressings removed in ER. This nurse took pictures and re-dressed the area to maintain a moist wound bed. Son was here for Admission, he is DPOA. Patient is a "Do not Resuscitate. Will continue to monitor.
[2019-06-11 15:07] VITALS: BP 113/44
[2019-06-11 21:06] VITALS: BP 158/51
--- NOTE | 2019-06-12 06:30 | NUR ---
Assumed care of pt @1915. pt is confused, has gera short term memory. pt was 2l O2 NC at the start of the shift. oxygen levels dropped low because pt wasn't wearing oxygen and patient became even more confused. being very impulsive and wanting to "go to bed". pt was redirected and oxygen placed back on at 5l. pt was able to relax and fall asleep for about 5hrs when she was woken up for morning vitals. pt has QIDprn breathing tx. pt is a high fall risk and bed alarm is set on the more sensitive motion due to how fast pt was when he was impulsive. v/s stable. no s/s of distress. will cont to monitor
[2019-06-12 08:00] VITALS: BP 136/67
[2019-06-12 15:00] VITALS: BP 124/60
--- NOTE | 2019-06-12 16:23 | NUR ---
Assumed pt care this am, pt is lart and oriented to self and tends to get confused and forgetful but pleasant. ON 2l of O2 via NC maintained, pt gets SOB upon exertion. Pt preferred to be on the recliner for most of the day. Blood sugars are monitored and insulin given as indicated on the emar. Productive cough and headache has been noted, partial relief of headache vebalized, headache is triggered by the cough. POC followed, no signs or verbalizations of distress have been noted.
[2019-06-12 20:15] VITALS: BP 145/67
--- NOTE | 2019-06-13 04:41 | NUR ---
assumed pt care @1915. pt is pleasntly confused and easily redirectable. pt sat in the recliner for the first half of the shift and was comfortable. cough medicine was ordered and administered and pt was able to go to sleep in the bed. pt c/o of nausea and was medicated with complete relief. fall prec in place. pt walks to the bathroom with a walker and standby assist. on 2l O2 NC. no s/s of distress. call ortiz within reach and pt will call one in a while for assistance. will cont to monitor
--- NOTE | 2019-06-13 10:03 | NUR ---
Nutrition: RD consulted due to question for supplement need. Pt admitted with chronic interstitial lung disease, COPD exacerbation. PO intake fair to good 50-90% of meals on regular diet. Did report decreased appetite for a few days prior to admit but no weight loss from usual. No food preferences voiced. RLE cellulitis, wound care consulted. Encouraged adequate protein sources. Pt agreeable to one ensure enlive daily.
[2019-06-13 10:16] VITALS: BP 132/69
--- NOTE | 2019-06-13 10:26 | NUR ---
WOUND CONSULT; RLE WOUNDS ASSESSED. SMALL AREAS ANTERIOR AND POSTERIOR WITH SCANT DRAINAGE, CLEAR DRAINAGE. PATIENT DENIES PAIN,ODOR OR FEVER. THE EXTREMITY IS CHRONICALLY PINK UNILATERALLY WITH HX OF THESE WOUNDS OVER 10 YEARS. RECOMMENDATION; THE PATIENT HAS BEEN USING XEROFORM , COVERED WITH ABD PADS. I WILL ADD ONE LAYER OF TUBIGRIP DIZE Clay HOLLAND PRESENT
[2019-06-13 12:18] VITALS: BP 132/69
--- NOTE | 2019-06-13 12:21 | NUR ---
Case opened to follow for dc planning. Color Dipper visited with the pt and her son Rj at bedside. The pt is A&ox4 and lives at home with her spouse and son Rj. They live in a ranch style home and everything is on the main level. Pt's son assists with setup for bathing and IADL's like laundry in the basement. She uses a FWW at home and they use [employer] for transportation. She is currently on service with [facility] and nursing sees her mwf for dressing changes to her rt leg. She would like to resume them at md. PT eval pending. Will ask for OT eval. The pt is hoping to go home with hh at md but would consider [facility] for a snf stay if needed. Her spouse has been there before for rehab. Cm role introduced. [facility] advised of the pt's admission. They can accept for readmission at md. Will follow.
--- NOTE | 2019-06-13 12:42 | NUR ---
PATIENT REQUESTING BREATHING TREATMENTS QID OR TID EACH DAY, SHE TAKES TID TREATMENTS AT HOME, CAN WE HAVE SCHEDULED THERAPY WITH THIS PATIENT
--- NOTE | 2019-06-13 13:37 | NUR ---
DISCHARGE PLANNING. PATIENT IS CUREENT WITH [facility]. PLAN IS FOR PATIENT TO RETURN HOME WITH RESUMPTION OF [facility] SERVICES. PATIENT CLINICAL INFORMATION FAXED TO [facility]. VERIFIED RECEIVED. FOLLOWING.
[2019-06-13 20:00] VITALS: BP 130/63
--- NOTE | 2019-06-14 03:25 | NUR ---
PT AOX3 WITH INTERMITTENT CONFUSION REGARDING SITUATION. PT FOUND WITH NASAL CANULA OFF, OXYGEN REAPPLIED. PT YELLING OUT FOR BILL. PT ALSO REPORTING CURRENTLY IN BED WITH HER. PT REORIENTED TO SITUATION. PT RESPONDS OK WITH BRIGHT AFFECT. PT HAS REPORTED PAIN 3/10 IN HEAD, UNRELIEVED BY PRN TYLENOL. PT REPORTS SHORTNESS OF BREATH WITH POSITION CHANGES. PT ENCOURAGED TO CHANGE POSITIONS SLOWLY. HEAD OF BED ELEVATED. PT NOTED TO HAVE INSPIRATORY WHEEZING IN LEFT UPPER LOBES, WITH COARSE LUNG SOUNDS THROUGHOUT. CONTINUED TO PROVIDE EDUCATION IN REGARDS TO OXYGEN THERAPY. PT VERBALIZED UNDERSTANDING. ENCOURAGED TO CONTACT STAFF FOR ALL CONCERNS. CALL LIGHT WITHIN REACH, BED AT LOWEST POSITION, BED ALARMS ON.
[2019-06-14 08:01] VITALS: BP 130/60
--- NOTE | 2019-06-14 10:48 | NUR ---
WOUND CARE F/U up in chair, drsg intact rle, alert and cooperative, denies pain, less reddness and less edema. scant drainage, drsg change done w/ xeroform, abd, tubigrip stocking, staff command and control officer present, in need of senior risk analyst for toe nail care, given info to f/u post dc RECOMMENDATIONS cont current tx, will cont to follow
[2019-06-14 16:56] VITALS: BP 136/74
--- NOTE | 2019-06-14 17:03 | NUR ---
I have reviewed the documentation by TERRELL DAWSON from 06/14/19 to 06/14/19 and I concur with it. ISABELA FLORES
--- NOTE | 2019-06-14 19:16 | NUR ---
Received awake on bed. Due medications given as prescribed, able to swallow meds w/o difficulty. A+O, forgetful. On O2 at 5lpm via nasal cannula; with productive cough- PRN cough meds given as prescribed. On blood sugar monitoring- taken and recorded, with sliding scale insulin prescribed. Assisted in ADLs. Tolerating meals; no nausea, no vomiting and no abdominal pain noted on patient. With leg dressing on R leg- C/D/I, pt seen by wound nurse today, dressing changed by wound nurse. With SL at R FA- intact and flushing well. Visited by her relative today. Vital signs stable. Pt re-oriented from time to time, with on and off confusion. Falls risk- falls bundle in place. Able to go to the toilet with minimum assist, using gait belt and walker. Pt went to the bathroom and had part of her tube veneer sample maker wet- removed, warehouse supervisor 3rd shift nurse informed to obtain tube veneer sample maker for pt's leg dressing. Complained of pain, due PRN pain meds given as prescribed. To continue monitoring patient.
[2019-06-14 19:29] VITALS: BP 151/75
[2019-06-15 07:30] VITALS: BP 146/90
--- NOTE | 2019-06-15 07:33 | NUR ---
ASSUMED CAREOF PT AT 1900 HRS. PT IS ALERT BUT ONLY ORIENTED PERSON AND PLACE. CONFUSION SOMETIME WORSENS. ABX AND STEROIDS CONTINUED. PT REMOVES O2 AND FORGETS TO PUT IT BACK ON. O2 AT 2L CONTINUED. VSS AND NO S/S OF ACUTE DISTRESS. WILL CONTINUE TO MONITOR
[2019-06-15 09:58] LABS: HEMATOCRIT 36.9 % (37.0-47.0); HEMOGLOBIN 11.8 gm/dL (12.0-15.0); MCH 29.5 pg (26.0-34.0); MCHC 32.1 g/dL (28.0-37.0); MCV 91.9 fL (80.0-100.0); RBC 4.02 mil/uL (4.20-5.00); RDW 13.7 % (10.5-14.5); WBC 14.4 thou/uL (4.0-11.0)
[2019-06-15 10:05] LABS: CREATININE 0.8 mg/dL (0.6-1.0); MAGNESIUM 1.9 mg/dL (1.8-2.4); POTASSIUM 3.5 mmol/L (3.5-5.1)
--- NOTE | 2019-06-15 11:27 | NUR ---
WOUND CARE F/U assess rle wound w/ staffing executive MERARI, tubigrip stocking off as got soiled last leonard, wound healing, less reddness less drainage, photo taken, encouraged off loading, wound care performed and tubigrip stocking reapplied, extra tubigrip stocking left in room, cooperative, see process interventions for wound details recommendations; cont current tx
--- NOTE | 2019-06-15 16:11 | NUR ---
PT A&OX4. IV NOT INTACT IN F FA. AMBULATES WITH STANDBY ASSIST. RLE DRSG CHANGED, CLEANSED WITH NS, APPLIED XEROFORM, ABD SECURED WITH TAPE. TUBE STOCKING APPLIED. PICTURE TAKEN. PT HAS UNCONTROLLED NON PRODUCTIVE COUGH AT TIMES, NEW COUGH SUPRESSENTS GIVEN, PULM CONSULT CALLED. WILL CONT POC.
[2019-06-15 19:49] VITALS: BP 135/59
--- NOTE | 2019-06-16 03:15 | NUR ---
PATIENT AOX4 MAKES NEEDS KNOWN. PATIENT IS ON CONTINOUS OXYGEN 2L. NO SHORTNESS OF AIR OR DISTRESS NOTED THIS SHIFT.PATIENT RIGHT LEG DRESSING IS C/D/I. PATIENT HAS BEEN HAVING NON PROCUTIVE COUGH THIS SHIFT.PAIN CONTROLLED THIS SHIFT.PATIENT REFUSED TO GET IN BED. PATIENT ON THE RECLINER ASLEEP AT THIS TIME BREATHING REGULAR AND UNLABOURED.
[2019-06-16 05:01] LABS: HEMATOCRIT 35.6 % (37.0-47.0); HEMOGLOBIN 11.3 gm/dL (12.0-15.0); MCH 29.2 pg (26.0-34.0); MCHC 31.8 g/dL (28.0-37.0); RBC 3.87 mil/uL (4.20-5.00); RDW 13.7 % (10.5-14.5); WBC 12.5 thou/uL (4.0-11.0)
[2019-06-16 05:06] LABS: CREATININE 0.7 mg/dL (0.6-1.0); MAGNESIUM 1.9 mg/dL (1.8-2.4); POTASSIUM 3.8 mmol/L (3.5-5.1)
[2019-06-16 08:00] VITALS: BP 143/69
--- NOTE | 2019-06-16 09:37 | NUR ---
WOUND CARE F/U assessed rle leg wounds w/ direct care stafferSKYLER SMALLS, wounds healing, less drainage, no pain, less reddness, cooperative, see process interventions for wound details, extra tubigrip stockings left in room recommendations; cont current tx
--- NOTE | 2019-06-16 14:00 | NUR ---
WOUND CONSULT; ROUNDING WITH DR NGUYEN. THE PATIENT IS INCESSANTLY COUGHING. THE RIGHT LE WOUND IS UNGANGED. RECOMMENDATION; NO CHANGES DISSCUSSED WITH STAFF
[2019-06-16] MEDS ORDERED: PREDNISONE 10 M10 MG PO (15:18)
[2019-06-16] MEDS ORDERED: DOXYCYCLINE 10100 MG PO (15:19)
[2019-06-16] MEDS ORDERED: GUAIFEN-CODEINE10 ML PO (15:20)
[2019-06-16 15:55] VITALS: BP 138/69
--- NOTE | 2019-06-16 15:58 | NUR ---
I have reviewed the documentation by TERRELL DAWSON from 06/16/19 to 06/16/19 and I concur with it. ISABELA FLORES
--- NOTE | 2019-06-16 16:26 | NUR ---
Pt dcing home this afternoon with [facility]. DC transit planner has faxed and confirmed with intake. The pt's son Rj is not able to pick her up today. [place] van transport with o2 vouchered per [facility] to facilitate her dc home. 5:30-6pm pickup time. All parties updated. Pt has needed dme at home including home o2.
[2019-06-16 16:29] VITALS: BP 132/69
--- NOTE | 2019-06-16 18:05 | NUR ---
Assumed pt care this am, VS stable. Pt stayed on her recliner for most of the day. Pt was able to work with PT/ OT and RT and did not require any oxygen wtih activity. Medication and diet are well tolerated, pt refused for her dressing to be take off again for the dc pictures since this was changed earlier by the wound care team. 2L of O2 was givne during the shift, cough has been noted , this has improved as per the pt, cough medicine given. POC followed, no signs or verbalizations of distress have been noted, IV removed, DC instructions and prescriptions given. Pt is now dc and was sent via wheelchair transport, son to receive pt at home.
--- NOTE | 2019-06-19 11:57 | HC ---
[facility] [place] [address] CONSULTATION Name: WESTLEY PONCE Room #: 463-P [facility] M.R.#: [id number] Admission: 06/11/19 Attend Phys: Renee Meza Discharge: 06/16/19 Date of : 34 Report #: [id number] THIS REPORT FOR: //name// CC: Dorys Meza DATE OF SERVICE: 06/16/2019 HISTORY OF PRESENT ILLNESS: The patient is an 83-year-old female patient, who has been admitted to the hospital on 06/11/2019 with shortness of breath. She was noted to have ulcerations along her right lower extremity. I have been asked to see her in regard to her wound care. She has already been here in the hospital for several days and was just asked to see her today. The patient denies significant pain associated with her legs. I have seen her in the distant past for venous-type ulcerations. PAST MEDICAL AND SURGICAL HISTORY: Positive for a prior atrial septal defect repair, previous cholecystectomy, previous skin graft to her right leg, vein stripping to her right leg, hernia surgery, skin cancer removal from her right forearm, right hip fracture status post repair, hyperlipidemia, anxiety and depression, sigmoid diverticulitis, previous exploratory lap with colectomy and colostomy placement in 2016, history of respiratory failure. MEDICATIONS: Include Zocor, hydroxyzine, Protonix and DuoNeb. ALLERGIES: CODEINE, LEVAQUIN AND SULFA. SOCIAL HISTORY: Positive for previous smoker, negative for alcohol use. FAMILY HISTORY: No pertinent family history is noted. REVIEW OF SYSTEMS: CONSTITUTIONAL: The patient denies fever, chills or weight loss. NEUROLOGICAL: The patient denies focal weakness, numbness or tingling. EYES: The patient denies visual changes, redness or drainage. ENT: The patient denies earache, nasal drainage or sore throat. CARDIOVASCULAR: The patient denies chest pain or palpitations, diaphoresis. She does note some mild palpitations. RESPIRATORY: The patient does complain of shortness of breath and dyspnea on exertion. Denies sputum production. GASTROINTESTINAL: Denies nausea, vomiting, diarrhea or abdominal pain. GENITOURINARY: The patient denies frequency or urgency of urination. Denies dysuria. ORTHOPEDIC: The patient does complain of some pain and right leg swelling and ulceration. Other systems in a 14-point review of systems are negative. [address] [address] CONSULTATION Name: WESTLEY PONCE Room #: 463-P [facility] IN M.R.#: [id number] Admission: 06/11/19 Attend Phys: Renee Meza Discharge: 06/16/19 Date of : 34 Report #: [id number] PHYSICAL EXAMINATION: VITAL SIGNS: Include temperature 98.0, pulse rate 102, respiratory rate of 17, blood pressure 138/69. GENERAL: This is a chronically ill-appearing female patient who appears to be in minimal distress. HEENT: Head normocephalic. Nose and throat are clear. NECK: Supple. LUNGS: Diminished. HEART: Tachycardic without murmur. ABDOMEN: Soft. Bowel sounds present. EXTREMITIES: Lower extremities demonstrate that the skin is pink, warm and dry. She has trace edema bilaterally. She is noted to have multiple venous-type ulcerations involving her right lower leg. There are islands of epithelization, and there is no slough or no overt evidence of infection. CLINICAL IMPRESSION: 1. Venous-type ulceration to the right lower extremity. 2. Respiratory failure secondary to chronic obstructive pulmonary disease exacerbation. 3. Lower extremity cellulitis, now appears to be resolving. 4. Gastroesophageal reflux disease. RECOMMENDATIONS: At this point in time, I will recommend topical moisturizer with AmLactin lotion, followed by Xeroform gauze, ABD, Kerlix, MILI or Tubigrip stocking. I have discussed these findings with Dr. Neal. I think from a wound care perspective, she could be managed on an outpatient basis going forward. The patient is agreeable to current plan of care. I appreciate being asked to see her in consultation. <ELECTRONICALLY SIGNED> By: Luis Manuel Sunshine MD 06/19/19 [id number] [id number] Luis Manuel Sunshine MD /nt
== END 2019-06-16 18:17 | disposition home or self-care (01) | DRG 871 ==
LOC: ER 07:35 → 4W 09:10 → EROBS 09:10 → 4W 10:35
PROVIDERS: Emergency Medicine; Internal Medicine; ADMIT Hospitalist
DX: A41.9 Sepsis, unspecified organism (principal); J96.00 Acute respiratory failure, unspecified whether with hypoxia or hypercapnia; J44.1 Chronic obstructive pulmonary disease with (acute) exacerbation; J84.9 Interstitial pulmonary disease, unspecified; L03.115 Cellulitis of right lower limb; J20.9 Acute bronchitis, unspecified; E78.5 Hyperlipidemia, unspecified; F32.9 Major depressive disorder, single episode, unspecified; F41.9 Anxiety disorder, unspecified; K21.9 Gastro-esophageal reflux disease without esophagitis; D72.829 Elevated white blood cell count, unspecified; I27.20 Pulmonary hypertension, unspecified; I48.91 Unspecified atrial fibrillation; Z87.81 Personal history of (healed) traumatic fracture; Z93.3 Colostomy status; Z88.1 Allergy status to other antibiotic agents; Z90.49 Acquired absence of other specified parts of digestive tract; Z88.6 Allergy status to analgesic agent; Z88.2 Allergy status to sulfonamides; Z87.891 Personal history of nicotine dependence
CPT/HCPCS: 10040

== ENCOUNTER 2019-07-12 09:34 | Emergency (ER) | payer OTHER, MEDICARE ==
[~2019-07-12] VITALS: Ht 162.6 cm; Wt 60.8 kg
[~2019-07-12 09:34] MED LIST changes: +GUAIFEN-CODEINE10 ML PO
[2019-07-12 11:06] LABS: ABSOLUTE NEUTROPHILS 15.5 thou/uL (1.4-8.2); BASOPHILS 0.3 % (0.0-2.0); HEMATOCRIT 37.8 % (37.0-47.0); HEMOGLOBIN 12.3 gm/dL (12.0-15.0); LYMPHOCYTES 5.2 % (24.0-44.0); MCH 30.3 pg (26.0-34.0); MCHC 32.7 g/dL (28.0-37.0); MCV 92.7 fL (80.0-100.0); MONOCYTES 5.9 % (1.0-8.0); PLATELET COUNT 589 thou/uL (150-400); POLYS 87.6 % (36.0-66.0); RBC 4.07 mil/uL (4.20-5.00); RDW 14.6 % (10.5-14.5); WBC 17.7 thou/uL (4.0-11.0)
[2019-07-12 13:29] LABS: ANION GAP 8 mmol/L (7-16); BUN 6 mg/dL (7-18); CALCIUM 10.2 mg/dL (8.5-10.1); CHLORIDE 99 mmol/L (98-107); CO2 27 mmol/L (21-32); CREATININE 0.7 mg/dL (0.6-1.0); GLUCOSE 94 mg/dL (74-106); POTASSIUM 3.9 mmol/L (3.5-5.1); SODIUM 134 mmol/L (136-145)
[2019-07-12 13:41] LABS: ALBUMIN 3.1 g/dL (3.4-5.0); DIRECT BILIRUBIN 0.1 mg/dL (<0.1-0.2); SGOT 20 U/L (15-37); SGPT 22 U/L (30-65); TOTAL BILIRUBIN 0.4 mg/dL (<0.1-1.0); TOTAL PROTEIN 7.4 g/dL (6.4-8.2); TROPONIN-I <0.06 ng/mL (<0.06)
[2019-07-12] MEDS ORDERED: TESSALON PERLE100 MG PO (14:07)
[2019-07-12] MEDS ORDERED: ZITHROMAX250 MG PO (14:07)
[2019-07-12] MEDS ORDERED: CEFUROXIME500 MG PO (14:07)
[2019-07-12 14:24] VITALS: BP 126/56
--- NOTE | 2019-07-13 08:28 | EKG ---
[address] [employer] 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: NEIL : 1935 Requested By: Lyndsey Krause Order Number: [id number] MD: Saman Magallon Measurements Intervals [place] Rate: 103 P: 35 NH: 199 QRS: 11 QRSD: 99 T: 20 QT: 340 QTc: 445 Interpretive Statements Sinus tachycardia Early R-wave progression Compared to ECG 06/11/2019 07:59:57 No significant change was found Electronically Signed On 07-13-2019 8:28:24 BULK SUGAR HAND[employer]ER by Saman Magallon [email or web address] <ELECTRONICALLY SIGNED> By: Saman Magallon MD, [facility] 07/13/19 0828 1153 1153 Saman Magallon MD, FACC /EPI
== END 2019-07-12 14:24 | disposition home or self-care (01) ==
LOC: ER 09:34
PROVIDERS: Emergency Medicine
DX: J18.9 Pneumonia, unspecified organism (principal); J06.9 Acute upper respiratory infection, unspecified; R53.1 Weakness; E78.5 Hyperlipidemia, unspecified; K21.9 Gastro-esophageal reflux disease without esophagitis; F41.9 Anxiety disorder, unspecified; F32.9 Major depressive disorder, single episode, unspecified; Z90.49 Acquired absence of other specified parts of digestive tract; Z85.828 Personal history of other malignant neoplasm of skin; Z87.891 Personal history of nicotine dependence; Z88.1 Allergy status to other antibiotic agents; Z88.2 Allergy status to sulfonamides; Z88.6 Allergy status to analgesic agent

== ENCOUNTER → 2019-09-06 | Outpatient (CLI) | payer OTHER, MEDICARE ==
[~2019-09-06] MED LIST changes: +CEFUROXIME500 MG PO; +TESSALON PERLE100 MG PO; +ZITHROMAX250 MG PO
== END ==
LOC: CAT 07-12 11:09
DX: J84.9 Interstitial pulmonary disease, unspecified (principal); R91.8 Other nonspecific abnormal finding of lung field; I25.10 Atherosclerotic heart disease of native coronary artery without angina pectoris; J98.4 Other disorders of lung; N28.1 Cyst of kidney, acquired; M25.78 Osteophyte, vertebrae; I77.819 Aortic ectasia, unspecified site

== ENCOUNTER → 2020-01-03 | Outpatient (CLI) | payer OTHER, MEDICARE | LOC: HYPER 14:25 | DX: I87.333 Chronic venous hypertension (idiopathic) with ulcer and inflammation of bilateral lower extremity (principal); L97.812 Non-pressure chronic ulcer of other part of right lower leg with fat layer exposed; I87.2 Venous insufficiency (chronic) (peripheral); I27.20 Pulmonary hypertension, unspecified; R60.0 Localized edema; L29.8 Other pruritus; L30.9 Dermatitis, unspecified; E78.5 Hyperlipidemia, unspecified; J44.9 Chronic obstructive pulmonary disease, unspecified; J84.9 Interstitial pulmonary disease, unspecified; M19.90 Unspecified osteoarthritis, unspecified site; M35.3 Polymyalgia rheumatica; Z90.49 Acquired absence of other specified parts of digestive tract; Z87.891 Personal history of nicotine dependence ==

== ENCOUNTER 2020-01-26 04:45 | Emergency (ER) | payer OTHER, MEDICARE ==
[~2020-01-26] VITALS: Ht 162.6 cm; Wt 63.0 kg
--- NOTE | ~2020-01-26 | EMS ---
[address] [address] EMS Patient Care Report Name: WESTLEY PONCE [id number] Admission: 01/26/20 Attend Phys: Discharge: Date of : 34 Report #: [id number] THIS REPORT FOR: //name// Report Transmitted: 01/26/2020 05:54 EMS Care Summary [place], [place]/[facility] Incident [id number] @ 01/26/2020 04:11 Incident Location [address] [place] [address] Patient WESTLEY PONCE Female, 84 Years 1935 Patient Address [address] [place] [address] Patient History Cardiac Condition - Other,Back Pain (Chronic), Patient Allergies Other drug allergy, Patient Medications Codeine, Hydroxyzine, Prednisone, DuoNeb, Pantoprazole, Simvastatin, Furosemide, Doxycycline, Chief Complaint MID BACK PAIN Disposition Transported No Lights/[place] Dispatch Reason Falls Transported To [facility] Narrative UPON ARRIVAL PT SUPINE ON THE GROUND CONSCIOUS AND ALERT. PT STATES SHE'S UNABLE TO GET UP ON HER OWN AND JUST NEEDS HELP UP. PT LIFTED UP TO RECLINER. PT STATES SHE GOT UP FROM HER CHAIR TOO FAST AND FELL BACKWARDS LANDING ON HER [address] [address] EMS Patient Care Report Name: WESTLEY PONCE [facility] [id number] Admission: 01/26/20 Attend Phys: Discharge: Date of : 34 Report #: [id number] BACK. DENIES ANY LOC OR HEAD INJURY. PT C/O PAIN TO THE MID BACK WHERE PT NORMALLY HAS SCOLIOSIS. PT ALSO HAVING CHEST PAIN WHEN BREATHING NOW. PT ALSO HAVING L HAND PAIN AND PAIN TO R KNEE WHEN STANDING. PT CONVINCED TO GO TO ER. PT IS ON O2 AT NIGHT ONLY AND IS GIVEN O2 DURING TRANSPORT. PT ASSISTED TO COT AND TRANSPORTED TO [facility]. Initial Vitals @04:38P: 60,CO: 6,SpO2: 98, @04:39P: 84,R: 20,BP: 105/59,GCS: 15,SpO2: 97,Revised Trauma: 12, @04:28P: 79,R: 20,BP: 131/74,Pain: 7/10,GCS: 15,SpO2: 92,Revised Trauma: 12, Assessments @04:17MENTAL:Person Oriented,Time Oriented,Event Oriented,Place Oriented,SKIN:HEENT:Head/Face: No Abnormalities,LUNG SOUNDS:General: No Abnormalities,ABDOMEN:General: No Abnormalities,PELVIS//GI:No Abnormalities,EXTREMITIES:Left Arm: No Abnormalities,Right Arm: No Abnormalities,Left Leg: No Abnormalities,Right Leg: No Abnormalities,PULSE:Radial: 2+ Normal,Pedal: 2+ Normal,NEURO:No Abnormalities, Impression Back Pain Procedures @04:17ALS AssessmentResponse: UnchangedSucceeded@04:29Oxygen FlowRate: 2 Device: Nasal Cannula (NC) Response: ImprovedSucceeded Timeline 04:09,Call Received 04:09,Dispatch Notified 04:11,Dispatched 04:12,En Route 04:15,On Scene 04:16,At Patient 04:17,ALS Assessment,Response: UnchangedSucceeded, 04:28,BP: 131/74 M,PULSE: 79,RR: 20 R,SPO2: 92 Ox,ETCO2: ,BG: ,PAIN: 7,GCS: 15, 04:29,Oxygen FlowRate: 2 Device: Nasal Cannula (NC) Response: ImprovedSucceeded, 04:29,Depart Scene 04:38,BP: / M,PULSE: 60,RR: R,SPO2: 98 Ox,ETCO2: ,BG: ,PAIN: ,GCS: , 04:38,At Destination 04:39,BP: 105/59 M,PULSE: 84,RR: 20 R,SPO2: 97 Ox,ETCO2: ,BG: ,PAIN: ,GCS: 15, 04:55,Call Closed Disclaimer v1.1 Copyright 2020 [employer] This EMS Care Summary contains data elements from the applicable legal record (which may be displayed differently). It is designed to provide pertinent [address] [address] EMS Patient Care Report Name: WESTLEY PONCE Room #: REG [facility] [place]#: [id number] Admission: 01/26/20 Attend Phys: Discharge: Date of : 34 Report #: [id number] information for the following purposes: continuity of care, clinical quality, and state data reporting. The complete legal record is available to ED staff and administrators of the receiving hospital in [facility]'s Patient Tracker. All data is provided "as is."
--- NOTE | ~2020-01-26 | EMS ---
[address] [address] EMS Patient Care Report Name: WESTLEY PONCE [facility] [id number] Admission: 01/26/20 Attend Phys: Discharge: Date of : 34 Report #: [id number] THIS REPORT FOR: //name// Report Transmitted: 01/26/2020 06:11 EMS Care Summary [place], [place]/[facility] Incident [id number] @ 01/26/2020 04:[address]ident [address] [place] [address] Patient WESTLEY PONCE Female, 84 Years 1935 Patient Address [address] [place] [address] Patient History Cardiac Condition - Other,Back Pain (Chronic), Patient Allergies Other drug allergy, Patient Medications Codeine, Hydroxyzine, Prednisone, DuoNeb, Pantoprazole, Simvastatin, Furosemide, Doxycycline, Chief Complaint MID BACK PAIN Disposition Transported No Lights/[place] Dispatch Reason Falls Transported To [facility] Narrative UPON ARRIVAL PT SUPINE ON THE GROUND CONSCIOUS AND ALERT. PT STATES SHE'S UNABLE TO GET UP ON HER OWN AND JUST NEEDS HELP UP. PT LIFTED UP TO RECLINER. PT STATES SHE GOT UP FROM HER CHAIR TOO FAST AND FELL BACKWARDS LANDING ON HER [address] [address] EMS Patient Care Report Name: WESTLEY PONCE Room #: REG [facility]#: [id number] Admission: 01/26/20 Attend Phys: Discharge: Date of : 34 Report #: [id number] BACK. DENIES ANY LOC OR HEAD INJURY. PT C/O PAIN TO THE MID BACK WHERE PT NORMALLY HAS SCOLIOSIS. PT ALSO HAVING CHEST PAIN WHEN BREATHING NOW. PT ALSO HAVING L HAND PAIN AND PAIN TO R KNEE WHEN STANDING. PT CONVINCED TO GO TO ER. PT IS ON O2 AT NIGHT ONLY AND IS GIVEN O2 DURING TRANSPORT. PT ASSISTED TO COT AND TRANSPORTED TO [facility]. Initial Vitals @04:38P: 60,CO: 6,SpO2: 98, @04:39P: 84,R: 20,BP: 105/59,GCS: 15,SpO2: 97,Revised Trauma: 12, @04:28P: 79,R: 20,BP: 131/74,Pain: 7/10,GCS: 15,SpO2: 92,Revised Trauma: 12, Assessments @04:17MENTAL:Person Oriented,Time Oriented,Event Oriented,Place Oriented,SKIN:HEENT:Head/Face: No Abnormalities,LUNG SOUNDS:General: No Abnormalities,ABDOMEN:General: No Abnormalities,PELVIS//GI:No Abnormalities,EXTREMITIES:Left Arm: No Abnormalities,Right Arm: No Abnormalities,Left Leg: No Abnormalities,Right Leg: No Abnormalities,PULSE:Radial: 2+ Normal,Pedal: 2+ Normal,NEURO:No Abnormalities, Impression Back Pain Procedures @04:17ALS AssessmentResponse: UnchangedSucceeded@04:29Oxygen FlowRate: 2 Device: Nasal Cannula (NC) Response: ImprovedSucceeded Timeline 04:09,Call Received 04:09,Dispatch Notified 04:11,Dispatched 04:12,En Route 04:15,On Scene 04:16,At Patient 04:17,ALS Assessment,Response: UnchangedSucceeded, 04:28,BP: 131/74 M,PULSE: 79,RR: 20 R,SPO2: 92 Ox,ETCO2: ,BG: ,PAIN: 7,GCS: 15, 04:29,Oxygen FlowRate: 2 Device: Nasal Cannula (NC) Response: ImprovedSucceeded, 04:29,Depart Scene 04:38,BP: / M,PULSE: 60,RR: R,SPO2: 98 Ox,ETCO2: ,BG: ,PAIN: ,GCS: , 04:38,At Destination 04:39,BP: 105/59 M,PULSE: 84,RR: 20 R,SPO2: 97 Ox,ETCO2: ,BG: ,PAIN: ,GCS: 15, 04:55,Call Closed Disclaimer v1.1 Copyright 2020 [employer] This EMS Care Summary contains data elements from the applicable legal record (which may be displayed differently). It is designed to provide pertinent [facility] [address] [place] [address] EMS Patient Care Report Name: WESTLEY PONCE Room #: REG [facility] [place]#: [id number] Admission: 01/26/20 Attend Phys: Discharge: Date of : 34 Report #: [id number] information for the following purposes: continuity of care, clinical quality, and state data reporting. The complete legal record is available to ED staff and administrators of the receiving hospital in [facility]'s Patient Tracker. All data is provided "as is."
[2020-01-26] MEDS ORDERED: PROTONIX40 M2 PO (05:11)
[2020-01-26] MEDS ORDERED: HYDROXYZINE PAM25 M1 PO (05:14)
[2020-01-26] MEDS ORDERED: TRAMADOL 50 MG50 MG PO (06:32)
[2020-01-26 07:25] VITALS: BP 112/56
== END 2020-01-26 08:30 | disposition home or self-care (01) ==
LOC: ER 04:45
DX: S32.10XA Unspecified fracture of sacrum, initial encounter for closed fracture (principal); S63.592A Other specified sprain of left wrist, initial encounter; S83.8X1A Sprain of other specified parts of right knee, initial encounter; M40.299 Other kyphosis, site unspecified; M17.11 Unilateral primary osteoarthritis, right knee; M54.6 Pain in thoracic spine; K21.9 Gastro-esophageal reflux disease without esophagitis; J44.9 Chronic obstructive pulmonary disease, unspecified; E78.5 Hyperlipidemia, unspecified; Z87.891 Personal history of nicotine dependence; Z88.5 Allergy status to narcotic agent; Z88.1 Allergy status to other antibiotic agents; Z88.2 Allergy status to sulfonamides; Z79.899 Other long term (current) drug therapy; Z79.2 Long term (current) use of antibiotics; Z90.49 Acquired absence of other specified parts of digestive tract; Z98.890 Other specified postprocedural states; W18.39XA Other fall on same level, initial encounter; Y93.89 Activity, other specified; Y92.89 Other specified places as the place of occurrence of the external cause; Y99.9 Unspecified external cause status

== ENCOUNTER → 2020-02-09 | Outpatient (CLI) | payer OTHER, MEDICARE ==
[~2020-02-09] MED LIST changes: +HYDROXYZINE PAM25 M1 PO; +PROTONIX40 M2 PO; +TRAMADOL 50 MG50 MG PO
== END ==
LOC: HYPER 07:07
PROVIDERS: ATTEND Emergency Medicine
DX: I87.332 Chronic venous hypertension (idiopathic) with ulcer and inflammation of left lower extremity (principal); L97.812 Non-pressure chronic ulcer of other part of right lower leg with fat layer exposed; L30.9 Dermatitis, unspecified; L29.8 Other pruritus; L84 Corns and callosities; R60.0 Localized edema; E78.5 Hyperlipidemia, unspecified; I27.20 Pulmonary hypertension, unspecified; J44.9 Chronic obstructive pulmonary disease, unspecified; K21.9 Gastro-esophageal reflux disease without esophagitis; M19.90 Unspecified osteoarthritis, unspecified site; M35.3 Polymyalgia rheumatica; Z87.891 Personal history of nicotine dependence

== ENCOUNTER → 2020-03-21 | Outpatient (CLI) | payer OTHER, MEDICARE | LOC: HYPER 09:52 | PROVIDERS: ATTEND Emergency Medicine | DX: I87.332 Chronic venous hypertension (idiopathic) with ulcer and inflammation of left lower extremity (principal); L97.812 Non-pressure chronic ulcer of other part of right lower leg with fat layer exposed; L29.8 Other pruritus; L30.9 Dermatitis, unspecified; L84 Corns and callosities; R60.0 Localized edema; E78.5 Hyperlipidemia, unspecified; I27.20 Pulmonary hypertension, unspecified; K21.9 Gastro-esophageal reflux disease without esophagitis; J44.9 Chronic obstructive pulmonary disease, unspecified; J84.9 Interstitial pulmonary disease, unspecified; M35.3 Polymyalgia rheumatica; M19.90 Unspecified osteoarthritis, unspecified site; Z87.891 Personal history of nicotine dependence ==

== ENCOUNTER → 2020-04-11 | Outpatient (CLI) | payer OTHER, MEDICARE | LOC: HYPER 10:21 | PROVIDERS: ATTEND Emergency Medicine | DX: I87.332 Chronic venous hypertension (idiopathic) with ulcer and inflammation of left lower extremity (principal); L97.812 Non-pressure chronic ulcer of other part of right lower leg with fat layer exposed; L29.8 Other pruritus; L30.9 Dermatitis, unspecified; L84 Corns and callosities; R60.0 Localized edema; E78.5 Hyperlipidemia, unspecified; I27.20 Pulmonary hypertension, unspecified; J84.9 Interstitial pulmonary disease, unspecified; J44.9 Chronic obstructive pulmonary disease, unspecified; K21.9 Gastro-esophageal reflux disease without esophagitis; M35.3 Polymyalgia rheumatica; M19.90 Unspecified osteoarthritis, unspecified site; Z87.891 Personal history of nicotine dependence ==

== ENCOUNTER → 2020-06-12 | Outpatient (CLI) | payer OTHER, MEDICARE | LOC: HYPER 09:48 | PROVIDERS: ATTEND Emergency Medicine | DX: I87.311 Chronic venous hypertension (idiopathic) with ulcer of right lower extremity (principal); L97.812 Non-pressure chronic ulcer of other part of right lower leg with fat layer exposed; I87.332 Chronic venous hypertension (idiopathic) with ulcer and inflammation of left lower extremity; L97.821 Non-pressure chronic ulcer of other part of left lower leg limited to breakdown of skin; L84 Corns and callosities; L29.8 Other pruritus; L30.9 Dermatitis, unspecified; R60.0 Localized edema; E78.5 Hyperlipidemia, unspecified; I27.20 Pulmonary hypertension, unspecified; K21.9 Gastro-esophageal reflux disease without esophagitis; J44.9 Chronic obstructive pulmonary disease, unspecified; J84.9 Interstitial pulmonary disease, unspecified; M35.3 Polymyalgia rheumatica; M19.90 Unspecified osteoarthritis, unspecified site; Z87.891 Personal history of nicotine dependence ==